=== PATIENT | male | born 1985 | race African-American/Black ===

== ENCOUNTER 2018-11-04 22:25 | Emergency (ER) | payer MEDICAID ==
[~2018-11-04] VITALS: Ht 182.8 cm; Wt 113.4 kg
[2018-11-04] MEDS ORDERED: CLINDAMYCIN150 MG PO (22:31)
== END 2018-11-05 00:49 | disposition home or self-care (01) ==
LOC: ED 22:25
DX: L02.212 Cutaneous abscess of back [any part, except buttock and flank] (principal)